=== PATIENT | male | born 1995 | race Two or more races ===

== ENCOUNTER 2017-11-09 15:58 | Emergency (ER) | payer OTHER ==
[2017-11-09] MEDS: CYCLOBENZAPRINE 10 MG TAB PO (18:00)
[2017-11-09] MEDS: IBUPROFEN 600 MG TAB PO (18:00)
== END 2017-11-09 18:25 | disposition home or self-care (01) ==
LOC: M ED 15:58
DX: G56.92 Unspecified mononeuropathy of left upper limb (principal); F17.200 Nicotine dependence, unspecified, uncomplicated; Z91.040 Latex allergy status
CPT/HCPCS: 99284

== ENCOUNTER 2017-11-13 14:02 | Emergency (ER) | payer OTHER ==
[2017-11-13] MEDS: ONDANSETRON 4 MG ORAL DISINTEGRATING TAB (S0181) PO (15:51)
== END 2017-11-13 18:33 | disposition home or self-care (01) ==
LOC: M ED 14:02
DX: K52.9 Noninfective gastroenteritis and colitis, unspecified (principal); Z91.040 Latex allergy status; Z79.52 Long term (current) use of systemic steroids
CPT/HCPCS: 99283

== ENCOUNTER 2019-09-06 09:24 | Emergency (ER) | payer OTHER ==
[~2019-09-06] VITALS: Ht 188 cm; Wt 106.7 kg
[~2019-09-06 09:24] MED LIST: IBUP-1022 PO; PRED20TA PO; ZOFR4TAB14 PO
--- NOTE | 2019-09-06 10:27 | REP ---
SCROTAL SONOGRAPHY: HISTORY: Pain and lump left testicle. FINDINGS: High-resolution bilateral scrotal sonography demonstrates a small right-sided hydrocele. No intratesticular mass lesion is seen on either side. Right testis measures 4.5 x 2.5 x 2.9 cm. Left testicular dimensions are 5.1 x 2.8 x 3.3 cm. The epididymis on the left is a little larger than the right. The palpable lump corresponds to the tail of the epididymis on the left which is somewhat enlarged and hyperemic consistent with epididymitis. Testicular Doppler flow is present bilaterally. Resistive indices are 0.55 and 0.66 on the right and left respectively. IMPRESSION: No intratesticular mass lesion is seen. Hyperemic enlargement of the tail of the epididymis on the left consistent with epididymitis. Small right hydrocele noted incidentally. Electronically Signed by Casey Quijano MD 09/06/2019 10:37 A
[2019-09-06] MEDS ORDERED: DOXY100C37 PO (11:07)
[2019-09-06] MEDS ORDERED: LIDOCAINE 1% SDV 5 ML VIAL DILUENT ONE (11:15)
[2019-09-06] MEDS ORDERED: cefTRIAXone SOD 250 MG VIAL (J0696) IM ONE (11:15)
[2019-09-06 11:29] VITALS: BP 119/67
[2019-09-06 12:06] LABS: CHLAMYDIA DNA AMPLIFICATION NEGATIVE (NEGATIVE); GC DNA AMPLIFICATION NEGATIVE (NEGATIVE)
== END 2019-09-06 11:29 | disposition home or self-care (01) ==
LOC: M ED 09:24
DX: N45.1 Epididymitis (principal); N43.3 Hydrocele, unspecified; F17.200 Nicotine dependence, unspecified, uncomplicated; Z91.040 Latex allergy status
CPT/HCPCS: 76870; 81001; 87661; 93976; 96372; 99283; J0696